=== PATIENT | male | born 1995 | race Caucasian/White ===

== ENCOUNTER → 2018-03-06 | Outpatient (CLI) | payer OTHER ==
[~2018-03-06] VITALS: Ht 170.2 cm; Wt 104.4 kg
[~2018-03-06] MED LIST: DAILY FIBER0.52 GM PO; TYLENOL EXTRA500 MG PO; ULTRAM50 MG PO
== END | disposition home or self-care (01) ==
LOC: AMB 09:15
DX: K21.9 Gastro-esophageal reflux disease without esophagitis (principal); R14.0 Abdominal distension (gaseous); R11.2 Nausea with vomiting, unspecified; Z82.49 Family history of ischemic heart disease and other diseases of the circulatory system; Z83.3 Family history of diabetes mellitus; Z88.0 Allergy status to penicillin
CPT/HCPCS: 88305; J2250